=== PATIENT | male | born 1980 | race American Indian/Alaskan Native ===

== ENCOUNTER 2021-01-16 22:07 | Emergency (ER) | payer SELFPAY ==
--- NOTE | 2021-01-17 03:21 | XRay Report ---
CHEST 2 VIEWS, 01/17/2021 INDICATION: Cough. Congestion. COMPARISON: None FINDINGS: Support devices: None. Heart: The cardiac silhouette is normal in size. Lungs/pleura: The lungs are clear of focal airspace disease or significant pleural effusion. Additional findings: No significant acute abnormality. IMPRESSION: 1. No evidence of acute cardiopulmonary process. Signer Name: Akanksha Ortega MD Signed: 01/17/2021 3:17 AM Workstation Name: [id number]
--- NOTE | 2021-01-17 03:29 | Emergency Department Report ---
ED General Adult HPI - General Chief complaint: Upper Respiratory Infection Stated complaint: CHILLS/CONGENSTION/TERESA Time Seen by Provider: 01/17/21 01:19 Source: patient Mode of arrival: Ambulatory Limitations: No Limitations - History of Present Illness Initial comments: 40-year-old male patient with history of hypertension presents to the emergency department with complaints of myalgias and productive cough for 5 days. Patient states he recently returned from a trip to [place] and his niece was exhibiting similar symptoms. He has been taking DayQuil and Mucinex with limited relief. No current steroid or antibiotic use. Patient completed his COVID-19 vaccination series. Patient has no known history of chronic lung disease although as an adolescent he was advised by a physician that "he is prone to getting bronchitis." Denies tobacco use. Denies fever, chills, chest pain, shortness of breath, hemoptysis, vomiting, diarrhea, rash. Denies all other complaints at this time. - Related Data Previous Rx's Medication Instructions Recorded Last Taken Type Albuterol Sulfate [Proair 90 mcg IH Q4H #1 aer.pw.bas 01/17/21 Unknown Rx Digihaler] Benzonatate [Tessalon Perles] 200 mg PO Q8HR #20 capsule 01/17/21 Unknown Rx Chlorpheniramine/Dextromethorp 1 each PO Q6H #20 tablet 01/17/21 Unknown Rx [Coricidin Hbp Cough-Cold Tab] predniSONE [Deltasone] 20 mg PO QDAY #5 tab 01/17/21 Unknown Rx Allergies Allergy/AdvReac Type Severity Reaction Status Date / Time Sulfa (Sulfonamide Allergy Rash Verified 01/17/21 00:52 Antibiotics) ED Review of Systems ROS: Stated complaint: CHILLS/CONGENSTION/TERESA Other details as noted in HPI Other: GENERAL: Positive for myalgias. ENT: Negative for ear pain, difficulty hearing, sore throat, nasal congestion, epistaxis. CARDIOVASCULAR: Negative for chest pain, palpitations, lower extremity swelling. PULMONARY: Positive for cough. GASTROINTESTINAL: Negative for abdominal pain, nausea, vomiting, diarrhea, constipation. MUSCULOSKELETAL: Negative for joint pain, joint swelling, myalgias, back pain, neck pain. NEUROLOGICAL: Negative for headache, seizure, syncope, paresthesias, weakness. INTEGUMENTARY: Negative for erythema, rash, diaphoresis, laceration, ecchymosis. HEMATOLOGICAL: Negative for hemoptysis, hematemesis, hematochezia, hematuria. PSYCHIATRIC: Negative for hallucinations, suicidal ideation, homicidal ideation, anxiety, depression. ED Past Medical Hx - Past Medical History Previous Medical History?: Yes Hx Hypertension: Yes Additional medical history: obesity - Surgical History Past Surgical History?: No - Social History Smoking Status: Never Smoker Substance Use Type: None - Medications Home Medications: Home Medications Medication Instructions Recorded Confirmed Last Taken Type Albuterol Sulfate [Proair 90 mcg IH Q4H #1 aer.pw.bas 01/17/21 Unknown Rx Digihaler] Benzonatate [Tessalon Perles] 200 mg PO Q8HR #20 capsule 01/17/21 Unknown Rx Chlorpheniramine/Dextromethorp 1 each PO Q6H #20 tablet 01/17/21 Unknown Rx [Coricidin Hbp Cough-Cold Tab] predniSONE [Deltasone] 20 mg PO QDAY #5 tab 01/17/21 Unknown Rx ED Physical Exam - General Limitations: No Limitations - Other Other exam information: General: Awake and alert. No acute distress. BMI 47.3. Head: Atraumatic, normocephalic. Eyes: EOMI. Pupils are equal and round. Normal sclera and conjunctiva. ENT: Oral mucosa is moist. Normal pharyngeal exam. Neck: Supple. No lymphadenopathy. Pulmonary: Actively coughing on exam. Mild expiratory wheeze heard best along the lung bases posteriorly. No rhonchi. No stridor. Speaking in full sentences without difficulty. Cardiac: Regular rate and rhythm. Pulses are palpable and equal bilaterally. No lower extremity cyanosis or edema. Skin: Warm and dry. No rashes. Abdomen: Soft, non-tender, non-protuberant. No guarding, rigidity, or rebound. Bowel sounds are normal. No organomegaly or masses noted. Back: Normal alignment. No CVA tenderness. Extremities: Symmetrical. Full range of motion intact. Neurological: Alert and oriented, appropriately interactive, no focal deficits. Psych: Cooperative. Appropriate mood and affect. Speech is evenly metered. Thoughts are logically construed. ED Course Vital Signs 01/17/21 01/17/21 00:46 03:51 Temperature 99.3 F 98.2 F Pulse Rate 98 H 98 H Respiratory 18 16 Rate Blood Pressure 158/102 Blood Pressure 150/98 [Left] O2 Sat by Pulse 96 100 Oximetry ED Medical Decision Making - Medical Decision Making Differential diagnosis including but not limited to: pneumonia, asthma, viral upper respiratory infection, pertussis, influenza, pleural effusion On reevaluation, patient remains stable. No hypoxia, no respiratory distress. Chest x-ray without acute process. Patient has mild wheezing on examination without increased work of breathing, respiratory distress, or hypoxia to warrant emergent administration of nebulized medications. History and exam findings suggestive of viral upper respiratory infection. Suspect patient may also have underlying reactive airways disease. Patient does not meet criteria for empiric antibiotic treatment at this time due to symptom duration < 3 weeks. He will be discharged home with beta agonist inhaler, short course of glucocorticoids, antitussives, and Coricidin for symptomatic relief. Emphasized the importance of avoiding environmental exposures, which may worsen symptoms. Patient expressed understanding and is agreeable to plan of care. Disease transmission precautions discussed. Strict return precautions provided. Repeat exam is unremarkable and benign. History, exam, diagnostic testing, and current condition do not suggest worrisome pathology to warrant further testing, continued ED treatment, admission, or surgical evaluation at this point. Given the low probability of a significant medical illness, it would be more likely to result in harm than benefit to perform further testing at this stage. Discussed findings, presumptive diagnosis, need for follow-up and specific signs/symptoms that should prompt immediate return to the emergency department. Instructions were explained in detail to the patient in addition to giving written discharge information. Patient expressed understanding and was given the opportunity to ask questions, all of which were satisfactorily answered prior to discharge home. Critical care attestation.: If time is entered above; I have spent that time in minutes in the direct care of this critically ill patient, excluding procedure time. ED Disposition Clinical Impression: Viral upper respiratory tract infection with cough Disposition: DC-01 TO HOME OR SELFCARE Is pt being admited?: No Does the pt Need Aspirin: No Condition: Stable Instructions: Viral Respiratory Infection, [id number] Additional Instructions: Take Tessalon as directed for cough. Take Prednisone with food as directed. Take Coricidin as directed. Please discontinue Dayquil. Use Albuterol inhaler as directed. Rest. Drink plenty of fluids. Wash hands frequently to prevent disease transmission. Do not share food or drinks with others. Avoid environmental triggers which may worsen your symptoms. Follow-up with primary care provider this week. Call Tuesday to schedule an appointment. See referral information below. Return to the emergency department immediately for new or worsening symptoms. Prescriptions: Chlorpheniramine/Dextromethorp [Coricidin Hbp Cough-Cold Tab] 1 each PO Q6H #20 tablet predniSONE [Deltasone] 20 mg PO QDAY #5 tab Albuterol Sulfate [Proair Digihaler] 90 mcg IH Q4H #1 aer.pw.bas Benzonatate [Tessalon Perles] 200 mg PO Q8HR #20 capsule Referrals: DEREK AL MD [Staff Physician] - 3-5 Days [facility] [Outside] - 3-5 Days [facility] [Outside] - 3-5 Days [facility] [Outside] - 3-5 Days [facility] [Provider Group] - 3-5 Days Time of Disposition: 03:31
[2021-01-17 03:52] VITALS: BP 150/98
== END 2021-01-17 03:52 | disposition home or self-care (01) ==
LOC: ED 22:07
DX: J06.9 Acute upper respiratory infection, unspecified (principal); I10 Essential (primary) hypertension; E66.9 Obesity, unspecified; Z79.899 Other long term (current) drug therapy; Z88.2 Allergy status to sulfonamides
CPT/HCPCS: 71046